=== PATIENT | male | born 1965 | race Two or more races ===

== ENCOUNTER 2019-03-19 16:54 | Emergency (ER) | payer OTHER ==
[2019-03-19] MEDS ORDERED: NITROGLYCERIN 0.4 MG BTL SL PRN (17:27)
[2019-03-19] MEDS ORDERED: ASPIRIN 81 MG CHEWABLE TAB PO ONE (17:27)
[2019-03-19] MEDS ORDERED: METOCLOPRAMIDE 10 MG/2 ML VIAL ONE (17:32)
[2019-03-19] MEDS ORDERED: METOCLOPRAMIDE 10 MG/2 ML VIAL IVP ONE (17:32)
--- NOTE | 2019-03-19 17:36 | EDPHY ---
H & P Time Seen by Provider: 03/19/19 17:14 HPI/ROS: At 4:00 a.m. This patient was walking when he developed chest pressure 8/10 intensity epigastric region with associated shortness of breath and nausea. He also reports dizziness that feels more spinning and lightheaded to him. Vomited shortly after arrival here was driven in by his daughter. He has not had these symptoms before. He felt well prior to the onset of symptoms has ongoing chest pressure and shortness of breath currently. He had the impression that the symptoms actually started right after he finished walking when he started drinking water and thought that maybe there is water stuck in his esophagus. He speaks some Serbian but his daughter is fluent in Serbian and Luxembourgish in helps translate. ROS: Constitutional: No fevers or chills. He does complain of fatigue Neuro: No headache. No focal numbness tingling or weakness. No confusion. HEENT: No URI symptoms or other complaints Pulmonary: Mild dyspnea. No cough. No pleuritic pain. Cardiovascular: No leg edema. No heart palpitations. GI: No lower abdominal pain. : No complaints Musculoskeletal: No complaints 10 point review of symptoms is performed and otherwise negative with exception of pertinent positives and negatives listed in HPI and ROS Smoking Status: Former smoker Physical Exam: Vital signs-afebrile mild hypertension O2 sat 90 to 95 on room air General Appearance: Alert, no distress. Eyes: Pupils equal and round no pallor or injection. ENT, Mouth: Mucous membranes moist. Respiratory: There are no retractions, lungs are clear to auscultation. Cardiovascular: Regular rate and rhythm. Gastrointestinal: Abdomen is soft and nontender, no masses, bowel sounds normal. Neurological: GCS 15 Skin: Warm and dry, no rashes. Musculoskeletal: Neck is supple nontender. Extremities are symmetrical, full range of motion. Psychiatric: Mood and affect are normal DIFFERENTIAL DIAGNOSIS: After history and physical exam differential diagnosis was considered for myocardial ischemic disease, pancreatitis, vertigo with GI upset, pulmonary embolism, pneumonia, pneumothorax Constitutional: Initial Vital Signs Heart Rate 89 03/19/19 17:11 Respiratory Rate 16 03/19/19 17:11 Blood Pressure 153/103 H 03/19/19 17:11 O2 Sat (%) 95 03/19/19 17:11 O2 Delivery Mode Nasal Cannula O2 (L/minute) 2 Allergies/Adverse Reactions: No Known Allergies Allergy (Verified 03/19/19 17:09) Home Medications: Medication Instructions Recorded Atorvastatin Calcium 03/19/19 Liraglutide 03/19/19 Lisinopril 03/19/19 Omeprazole Magnesium [Prilosec] 03/19/19 MDM/Departure - MDM Diagnostics: 12 lead EKG performed shortly after arrival at 5:21 p.m. Indication chest pain Sinus rhythm at 92 Intervals: P R of 183, QRS of 160, QTC of 505 new [place]: P of 19, QRS of 91, T of 5 ST segments: Notable for new T-wave inversion in lead 3 when compared to an EKG that is dated 07/05/2014. Overall assessment sinus rhythm with right bundle branch block left posterior fascicular block and new T-wave inversion in lead 3 consider inferior ischemia by my interpretation Right-sided EKG performed at 5:49 p.m. Indication inferior ischemia rule out RV infarct Negative for ST elevation in V4 by my interpretation-negative for RV infarct Posterior EKG performed at 5:55 p.m. Also negative for posterior infarct by my interpretation Repeat EKG standard performed at 6:10 p.m. Indication chest pain resolved after nasal cannula O2 rule out interval change reveals sinus rhythm at 79 with no significant interval change when compared to the 1st EKG-he T-wave inversion persistently 3. Imaging Results: Imaging Impressions Chest X-Ray 03/19/19 18:04 Impression: Query airways disease. Head CT 03/19/19 18:50 Impression: Normal CT scan of the head. Results called and discussed with MALGORZATA CHATMAN M.D. on 03/19/2019 at 19:48. Portable chest x-ray: Mild bronchial findings but normal cardiac silhouette and mediastinum with no other remarkable findings by my interpretation Imaging: Discussed imaging studies w/ coagulator Radiologist (The CT head. I also reviewed these images myself.), I viewed and interpreted images myself Medications Given: Discontinued Medications Aspirin (Aspirin) 324 mg PO EDNOW ONE Stop: 03/19/19 17:28 Last Admin: 03/19/19 17:59 Dose: 324 mg Diphenhydramine HCl (Benadryl Injection) 25 mg IVP EDNOW ONE Stop: 03/19/19 17:33 Last Admin: 03/19/19 17:32 Dose: 25 mg Meclizine HCl (Meclizine Hcl) 25 mg PO EDNOW ONE Stop: 03/19/19 18:10 Last Admin: 03/19/19 18:14 Dose: 25 mg Metoclopramide HCl (Reglan Injection) 10 mg IVP EDNOW ONE Stop: 03/19/19 17:33 Last Admin: 03/19/19 17:35 Dose: 10 mg ED Course/Re-evaluation: IV, monitor He vomited shortly after arrival here is treated with Reglan and Benadryl with resolution of his nausea. He is then given aspirin 324 chewed Meclizine for vertiginous symptoms p.o. When compared to an old EKG the patient has a new T-wave inversion in lead 3. We performed right-sided and posterior EKGs and appreciate no evidence of RV infarction. At 6:00 p.m. After these EKGs were performed prior to giving supple nitroglycerin for prior 06/23 pain patient's pain had resolved with nasal cannula O2. He was satting 90-92% room air and with supplemental nasal cannula O2 lab to the mid 90s and had resolution of his chest pain. Repeat EKG performed at 6:10 p.m. without interval change from initial by my interpretation. I explained the need for admission given concern for potential inferior cardiac ischemia with risk factor of diabetes and suspicious symptoms. He is now pain- free with no dynamic changes in his EKG and negative 1st troponin. His CBC is also normal as is his metabolic panel. While there is initially a potassium 3.1 we repeated an i-STAT potassium which is normal. I offered admission to [facility], but the family requests [facility] due to proximity to their home. I called [facility] at 6:20 p.m. To arrange transport and spoke with the transfer nurse. A physician will call back I spoke with Dr.Quin Bustamante, hospitalist at [facility] who raises the possibility of posterior stroke in this patient. While the patient does not have focal findings he does have ongoing vertigo and hemorrhagic stress can cause T-wave changes. Will proceed with CT head prior to transfer to [facility] Head CT is normal. Patient proceeds to [facility] with no recurrent chest pain on nasal cannula O2 with good O2 sats the mid 90s. His vertigo improved persists after meclizine. A repeat EKG showed no interval change from his initial EKG with the isolated T inversion in lead 3. I counseled patient regarding transfer answer other questions. I called and passed on the normal head CT result after the patient was transferred to [facility] telemetry in stable condition. - Depart Disposition: Acute Care Hospital Count includes the [facility] Clinical Impression: T wave inversion in EKG, Vertigo Chest pain Qualifiers: Chest pain type: unspecified Qualified Code(s): R07.9 - Chest pain, unspecified Vomiting Qualifiers: Vomiting type: unspecified Vomiting Intractability: non-intractable Nausea presence: with nausea Qualified Code(s): R11.2 - Nausea with vomiting, unspecified Condition: Fair Referrals: Sun Leon DO [Primary Care Provider] - As per Instructions
[2019-03-19] MEDS ORDERED: MECLIZINE HCL 25 MG TAB PO ONE (18:09)
--- NOTE | 2019-03-19 20:05 | CPEKG ---
Test Reason : OPEN Blood Pressure : / mmHG Vent. Rate : 079 BPM Atrial Rate : 079 BPM P-R Int : 176 ms QRS Dur : 167 ms QT Int : 434 ms P-R-T Axes : 041 093 -06 degrees QTc Int : 498 ms Sinus rhythm RBBB and LPFB Confirmed by Markus Caldwell ([id number]) on 03/19/2019 8:05:28 PM Referred By: Markus Caldwell Confirmed By:Markus Caldwell
--- NOTE | 2019-03-19 20:10 | CPEKG ---
Test Reason : OPEN Blood Pressure : / mmHG Vent. Rate : 084 BPM Atrial Rate : 084 BPM P-R Int : 164 ms QRS Dur : 174 ms QT Int : 420 ms P-R-T Axes : 042 135 -05 degrees QTc Int : 497 ms Sinus rhythm RIGHT SIDED ECG - Neg. for infarct Confirmed by Markus Caldwell ([id number]) on 03/19/2019 8:09:59 PM Referred By: Markus Caldwell Confirmed By:Markus Caldwell
--- NOTE | 2019-03-19 20:11 | CPEKG ---
Test Reason : OPEN Blood Pressure : / mmHG Vent. Rate : 092 BPM Atrial Rate : 092 BPM P-R Int : 183 ms QRS Dur : 168 ms QT Int : 408 ms P-R-T Axes : 019 091 005 degrees QTc Int : 505 ms Sinus rhythm RBBB and LPFB Confirmed by Markus Caldwell ([id number]) on 03/19/2019 8:11:10 PM Referred By: Markus Caldwell Confirmed By:Markus Caldwell
[2019-03-19 20:22] VITALS: BP 121/67
== END 2019-03-19 20:00 | disposition short-term general hospital (02) ==
LOC: CED 16:54
DX: R07.9 Chest pain, unspecified (principal); R11.2 Nausea with vomiting, unspecified; Z87.891 Personal history of nicotine dependence
CPT/HCPCS: 70450-PO; 71045-PO; 80048-ER; 80076-ER; 82150-ER; 84132-PO; 84484-ER; 85025-QW-ER; 85379-QW-ER; 96374-ER; 96375-ER; 99285-ER; J1200; J2765